=== PATIENT | female | born 1960 | race Caucasian/White ===

== ENCOUNTER 2021-05-29 10:25 | Emergency (ER) | payer BC, OTHER ==
[~2021-05-29] VITALS: Ht 157.5 cm; Wt 105.0 kg
[2021-05-29 10:53] LABS: HEMATOCRIT. 34.5 % (36.0-48.0); HEMOGLOBIN. 11.4 g/dL (12.0-16.0); MEAN CORPUSCULAR HEMOGLOBIN 28.8 pg (28.0-32.0); MEAN CORPUSCULAR VOLUME 87.3 fL (81.0-99.0); MEAN PLATELET VOLUME 9.1 fl (7.4-10.4); PLATELET 224 x1000/uL (130-400); RED BLOOD CELL COUNT 3.95 mill/uL (4.2-5.4); RED CELL DISTRIBUTION WIDTH 13.5 % (11.6-14.6)
[2021-05-29 10:57] LABS: CHLORIDE 107 mEq/L (98-107)
[2021-05-29 11:57] LABS: PLATELET ESTIMATE NORMAL
[2021-05-29] MEDS ORDERED: VISCOUS LIDOCAINE 2% 15 ML UDC MM STA (15:03)
[2021-05-29] MEDS ORDERED: MAGNESIUM/ALUMINUM HYDROXIDE/SIMETHICONE 30ML UDC PO ONE (15:15)
[2021-05-29] MEDS ORDERED: FAMOTIDINE 20MG TABLET PO ONE (15:15)
[2021-05-29] MEDS ORDERED: ONDANSETRON 4MG ODT PO ONE (15:15)
[2021-05-29 16:20] VITALS: BP 126/67
== END 2021-05-29 16:29 | disposition home or self-care (01) ==
LOC: ER 10:25
DX: R07.2 Precordial pain (principal); R10.13 Epigastric pain; I10 Essential (primary) hypertension
CPT/HCPCS: 36415; 71045; 80053; 83880; 84484; 85025; 93005; 99285; Q0162